=== PATIENT | female | born 1950 | race Caucasian/White ===

== ENCOUNTER → 2017-07-16 | Day surgery (SDC) | payer OTHER ==
[~2017-07-16] VITALS: Ht 160 cm; Wt 102.1 kg
[~2017-07-16] MED LIST: COUMADIN 3 MG TA3 MG PO; FOSAMAX70 MG PO; LISINOPRIL HCTZ1 TAB PO; PEPCID 20MG TAB20 MG PO; PERCOCET 325 MG1 TA2 PO; SYNTHROID PO; ZOLOFT50 MG PO
--- NOTE | 2017-07-16 09:14 | Operative Report ---
See Addendum Operative/Inv Procedure Report Surgery Date: 07/16/17 Name of Procedure: Complex Cataract extraction with intraocular lens implantation and posterior synechiolysis right eye Pre-Operative Diagnosis: Age-related cataract and abnormal pupil right eye Post-Operative Diagnosis: Same Estimated Blood Loss: none Surgeon/Electric Motor Repairer: Pelon Carbajal MD Anesthesia: local monitored anesthesi Complications: None Operative/Procedure Note Note: Preoperatively the patient was noted to have 20/50 vision in the right eye . The risks, benefits, and alternatives to surgery were discussed at length with the patient. Informed consent was obtained. The patient was brought to the operating room where the right eye was prepped and draped in the normal sterile fashion. A speculum was placed on the right eye with good exposure. The axis of the limbal relaxing incision was marked. Using a kylie blade at 600 depth, an incision spanning 40 degrees was made without complication. A limbal relaxing incision of equal length and depth was made 180 away.A stab incision was made using a paracentesis blade. Intracameral lidocaine was placed. Viscoelastic was used to form the anterior chamber. A clear corneal incision was made using keratome blade. A continuous curvilinear capsulorrhexis was made using a cystotome needle followed by Utrata forceps. There was no extension of the rhexis. Hydrodissection was performed using balanced salt solution. The cataract was removed using a stop and chop technique. Residual cortex was removed using coaxial irrigation and aspiration. The capsule was polished using irrigation and aspiration and the posterior capsule was cleaned using a balanced salt solution jet. There was no residual lens material inside the eye. The capsular bag was reformed using viscoelastic. An intraocular lens MX60E of power 27.0 was verified and confirmed. It was loaded into an injector and injected into the eye. The lens was placed entirely within the capsular bag. Viscoelastic was evacuated using irrigation and aspiration. The wounds were stromally hydrated and the eye filled to physiologic pressure using balanced salt solution. Intracameral cefuroxime was placed. Speculum was removed and a shield was placed on the eye. The patient was brought to the recovery area without incident. Instructions were given to follow-up the next day for routine postoperative care.
== END ==
LOC: STS 01:46
DX: H25.89 Other age-related cataract (principal); H21.541 Posterior synechiae (iris), right eye; I10 Essential (primary) hypertension; E07.9 Disorder of thyroid, unspecified
CPT/HCPCS: J2250; V2632

== ENCOUNTER → 2017-10-17 | Day surgery (SDC) | payer OTHER ==
[~2017-10-17] VITALS: Ht 160 cm; Wt 102.1 kg
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
== END ==
LOC: STS 04:31
DX: H25.89 Other age-related cataract (principal); H21.562 Pupillary abnormality, left eye; H21.542 Posterior synechiae (iris), left eye; I10 Essential (primary) hypertension; E07.9 Disorder of thyroid, unspecified; G47.33 Obstructive sleep apnea (adult) (pediatric)
CPT/HCPCS: J2250; V2632